=== PATIENT | female | born 1980 | race Caucasian/White ===

== ENCOUNTER 2020-11-24 14:27 | Outpatient (CLI) | payer OTHER | END 2020-11-24 23:59 | disposition home or self-care (01) | LOC: CFH 14:27 | PROVIDERS: ATTEND Internal Medicine Cardiovascular Disease | DX: Z13.6 Encounter for screening for cardiovascular disorders (principal); R53.83 Other fatigue; I08.8 Other rheumatic multiple valve diseases; Z82.49 Family history of ischemic heart disease and other diseases of the circulatory system | CPT/HCPCS: 75571; 93306 ==